=== PATIENT | male | born 1960 | race Caucasian/White ===

== ENCOUNTER 2022-11-02 12:22 | Outpatient (CLI) | payer BC | END 2022-11-02 12:23 | disposition home or self-care (01) | LOC: CSHCT 12:22 | PROVIDERS: ATTEND Otolaryngology | DX: H90.A32 Mixed conductive and sensorineural hearing loss, unilateral, left ear with restricted hearing on the contralateral side (principal); Z96.29 Presence of other otological and audiological implants | CPT/HCPCS: 70480 ==